=== PATIENT | male | born 1940 | race Caucasian/White ===

== ENCOUNTER 2020-08-04 11:42 | Day surgery (SDC) | payer MEDICARE, BC ==
[~2020-08-04 11:42] MED LIST: Lactated Ringers 1,000 ML IV SCH; Propofol 200 MG/20 ML SDV ONE; Sodium Chloride 0.9% 10 ML Syringe FLUSH PRN
--- NOTE | 2020-08-04 13:36 | PCM.PN ---
- General Info Date of Service: 08/04/20 - Review of Systems Systems Review Comment:: 79-year-old male referred for colonoscopy. He has been having increasing difficulty with passing stool. He does have a history of anal stenosis as well as a history of diverticulosis. He feels obstructive symptoms at the rectum. He also has occasional rectal bleeding. The patient is medically stable to proceed today. His recent history and physical is reviewed and no significant changes are noted. I have discussed the proposed colonoscopy with the patient. He agrees to proceed accepting risks. - Patient Data Vitals - Most Recent: Last Vital Signs Temp 97.9 F 08/04/20 12:03 Pulse 59 L 08/04/20 12:03 Resp 16 08/04/20 12:03 BP 128/72 08/04/20 12:03 Pulse Ox 96 08/04/20 12:03 Weight - Most Recent: 68.039 kg Med Orders - Current: Current Medications Lactated Ringer's (Ringers, Lactated) 1,000 mls @ 125 mls/hr IV ASDIRECTED [place] Last Admin: 08/04/20 12:13 Dose: 125 mls/hr Documented by: Sodium Chloride (Sodium Chloride 0.9% 10 Ml Syringe) 10 ml FLUSH ASDIRECTED PRN PRN Reason: Keep Vein Open Discontinued Medications Propofol (Propofol 200 Mg/20 Ml Sdv) Confirm Administered Dose 200 mg .ROUTE .STK-MED ONE Stop: 08/04/20 08:28 Sepsis Event Note - Focused Exam Vital Signs: Vital Signs Temp Pulse Resp BP Pulse Ox 08/04/20 12:03 97.9 F 59 L 16 128/72 96 - Problem List Review Problem List Initiated/Reviewed/Updated: Yes - Assessment Assessment:: Change in bowel habits Obstructing rectal symptoms - Plan Plan:: Colonoscopy
[2020-08-04] MEDS ORDERED: Propofol 200 MG/20 ML SDV ONE (13:41)
--- NOTE | 2020-08-04 14:16 | PCM.OPNOTE ---
- General Post-Op/Procedure Note Date of Surgery/Procedure: 08/04/20 Operative Procedure(s): Colonoscopy Findings: Anal stenosis Moderate sized internal hemorrhoids Extensive sigmoid diverticulosis Pre Op Diagnosis: Change in bowel habits with rectal bleeding Post-Op Diagnosis: Anal stenosis. Internal hemorrhoids. Sigmoid diverticulosis Anesthesia Technique: MAC Primary Surgeon: Robinson Whyte Pathology: none EBL in mLs: 0 Complications: None Condition: Good
--- NOTE | 2020-08-04 21:02 | OR ---
Date of Procedure: 08/04/2020 PREOPERATIVE DIAGNOSIS: Change in bowel pattern with obstructive rectal symptoms. POSTOPERATIVE DIAGNOSES: Anal stenosis, internal hemorrhoids, and sigmoid diverticulosis. OPERATIONS PERFORMED: Colonoscopy. INDICATIONS FOR SURGERY: This 79-year-old male is noticing increasing difficulty in evacuating stool. He does have a known history of anal stenosis, but feels symptoms are worsening. FINDINGS: The patient does have a moderate stenosis of the anal canal. It does admit the examining finger and I do not feel any other masses in the area. There are moderate size internal hemorrhoids noted, but these are soft and do not appear to be indurated or acutely inflamed. The patient also has extensive diverticulosis of the sigmoid region. These diverticula do not appear to be acutely inflamed, or otherwise, complicated. The remainder of the colon appears normal. DESCRIPTION OF PROCEDURE: The patient was taken to the operating room. He was given intravenous sedation, and with him in the left lateral decubitus position, digital rectal exam was performed showing no rectal masses, although the anal stenosis is readily identified on digital exam. The Olympus colonoscope was inserted into the rectum. Retroflexed examination of the rectal canal was performed. The scope was then carefully advanced under direct visualization through the entire length of the colon until cecum was reached. Cecal acquisition was confirmed by noting the normal internal cecal anatomy including the appendiceal orifice and the ileocecal valve. The light was also noted to transilluminate the abdominal wall in the right lower quadrant. After examining the cecum, the scope was slowly withdrawn sequentially re-examining the colonic segments until the entire colon and rectum had been fully examined. The scope was removed and the patient was taken from the operating room in satisfactory condition. ESTIMATED BLOOD LOSS: 0. COMPLICATIONS: None. PROGNOSIS: Good. BIRD Whyte MD /[id number]
== END 2020-08-04 15:05 | disposition home or self-care (01) ==
LOC: LL.SDS 11:42
PROVIDERS: ATTEND Surgery
DX: K62.4 Stenosis of anus and rectum (principal); K57.30 Diverticulosis of large intestine without perforation or abscess without bleeding; K64.4 Residual hemorrhoidal skin tags; K64.8 Other hemorrhoids; I10 Essential (primary) hypertension; E78.5 Hyperlipidemia, unspecified; E03.9 Hypothyroidism, unspecified; I25.10 Atherosclerotic heart disease of native coronary artery without angina pectoris; Z01.812 Encounter for preprocedural laboratory examination; Z20.822 Contact with and (suspected) exposure to COVID-19; Z88.0 Allergy status to penicillin; Z88.2 Allergy status to sulfonamides; Z87.442 Personal history of urinary calculi; Z79.899 Other long term (current) drug therapy; Z79.890 Hormone replacement therapy
CPT/HCPCS: 00812; J2704; J7120; U0002

== ENCOUNTER 2021-09-04 14:41 | Inpatient (IN) | payer MEDICARE, BC ==
[2021-09-04] MEDS ORDERED: Sodium Chloride 0.9% 1,000 ML IV ONE (14:59)
[2021-09-04] MEDS ORDERED: Loperamide 2 MG Tab PO ONE (14:59)
[2021-09-04] MEDS ORDERED: Loperamide 2 MG Tab ONE (15:30)
[2021-09-04 15:40] LABS: ANION GAP 10.1 meq/L (7-15); CHLORIDE,CL 106 mmol/L (98-107); SODIUM,NA 139 mmol/L (136-145)
[2021-09-04 16:39] LABS: CORONAVIRUS COVID-19 NAA POSITIVE (NEGATIVE); RESPIRATORY SYNCYTIAL VIR NAA NEGATIVE (NEGATIVE)
[2021-09-04] MEDS ORDERED: Sodium Chloride 0.9% 1,000 ML IV SCH (18:00)
[2021-09-04] MEDS ORDERED: Ondansetron 4 MG/2 ML SDV IVPUSH PRN (18:38)
[2021-09-04] MEDS ORDERED: REMDESIVIR 200 MG in Sodium Chloride 0.9% 250 ML IV ONE (18:41)
[2021-09-05] MEDS: Acetaminophen 325 MG Tab PO PRN ×2 (02:00→21:36)
[2021-09-05 07:37] LABS: CHLORIDE,CL 108 mmol/L (98-107); SODIUM,NA 140 mmol/L (136-145)
[2021-09-05 07:38] LABS: ANION GAP 13.1 meq/L (7-15)
[2021-09-05] MEDS: Levothyroxine 75 MCG Tab PO SCH (07:59)
[2021-09-05] MEDS ORDERED: TESTOSTERONE TOP SCH (08:00)
[2021-09-05] MEDS ORDERED: Levothyroxine 75 MCG Tab PO SCH (08:00)
[2021-09-05] MEDS: amLODIPine 5 MG Tab PO SCH ×2 (08:00→08:24)
[2021-09-05] MEDS ORDERED: Non-Formulary Medication 1 Each (Lutein [Lutein] 20 MG Tablet) PO SCH (08:00)
[2021-09-05] MEDS: Multivitamin Tab PO SCH (08:01)
[2021-09-05] MEDS: Metoprolol Succinate 50 MG Tab.ER PO SCH (08:01)
[2021-09-05] MEDS: Formoterol/Mometasone 200-5 MCG 8.8 GM Inhaler IH SCH (08:01)
[2021-09-05] MEDS: Enoxaparin 40 MG/0.4 ML Syringe SUBCUT SCH (08:02)
[2021-09-05] MEDS ORDERED: Loperamide 2 MG Tab PO PRN (10:00)
[2021-09-05] MEDS ORDERED: REMDESIVIR 100 MG in Sodium Chloride 0.9% 100 ML IV SCH (18:00)
[2021-09-05] MEDS ORDERED: amLODIPine 5 MG Tab PO SCH (18:00)
[2021-09-06] MEDS: Metoprolol Succinate 50 MG Tab.ER PO SCH (07:47)
[2021-09-06] MEDS: Multivitamin Tab PO SCH (07:47)
[2021-09-06] MEDS: Enoxaparin 40 MG/0.4 ML Syringe SUBCUT SCH (07:48)
[2021-09-06] MEDS: Levothyroxine 75 MCG Tab PO SCH (07:48)
[2021-09-06] MEDS: Formoterol/Mometasone 200-5 MCG 8.8 GM Inhaler IH SCH (07:48)
[2021-09-06 08:25] LABS: CHLORIDE,CL 107 mmol/L (98-107); SODIUM,NA 139 mmol/L (136-145)
== END 2021-09-06 13:00 | disposition home or self-care (01) | DRG 178 ==
LOC: LL.ED 14:41 → LL.MS 17:35
PROVIDERS: ADMIT Emergency Medicine; ATTEND Emergency Medicine
PROC: 8E0ZXY6 Isolation (ICD-10-PCS; principal; 2021-09-04)
PROC: XW033E5 Introduction of Remdesivir Anti-infective into Peripheral Vein, Percutaneous Approach, New Technology Group 5 (ICD-10-PCS; 2021-09-04)
DX: U07.1 COVID-19 (principal); K52.89 Other specified noninfective gastroenteritis and colitis; A08.39 Other viral enteritis; E86.0 Dehydration; J44.9 Chronic obstructive pulmonary disease, unspecified; I10 Essential (primary) hypertension; E03.9 Hypothyroidism, unspecified; M06.9 Rheumatoid arthritis, unspecified; I25.10 Atherosclerotic heart disease of native coronary artery without angina pectoris; D84.9 Immunodeficiency, unspecified; E78.00 Pure hypercholesterolemia, unspecified; E29.1 Testicular hypofunction; N40.0 Benign prostatic hyperplasia without lower urinary tract symptoms; G89.29 Other chronic pain; M54.9 Dorsalgia, unspecified; Z79.3 Long term (current) use of hormonal contraceptives; Z79.82 Long term (current) use of aspirin; Z79.899 Other long term (current) drug therapy; Z88.0 Allergy status to penicillin; Z88.2 Allergy status to sulfonamides; Z79.890 Hormone replacement therapy
CPT/HCPCS: 0241U; 36415; 74022; 80053; 81001; 82150; 82248; 83605; 83690; 83735; 83880; 85025; 97161; 97165; 97530; 99285-25; A9270-GY; J1650; J2405; J7030; J7050